=== PATIENT | female | born 1955 | race Caucasian/White ===

== ENCOUNTER 2018-04-12 11:21 | Emergency (ER) | payer BC ==
[~2018-04-12] VITALS: Ht 162.6 cm; Wt 77.1 kg
--- NOTE | 2018-04-12 11:50 | NUR ---
pt was evaluated by dr quinn. pt was d/c to home. d/c instructions given to the pt.
[2018-04-12 11:51] VITALS: BP 135/78
== END 2018-04-12 11:51 | disposition home or self-care (01) ==
LOC: ER 11:21
DX: L08.9 Local infection of the skin and subcutaneous tissue, unspecified (principal); B95.8 Unspecified staphylococcus as the cause of diseases classified elsewhere
CPT/HCPCS: 99283; A4663

== ENCOUNTER 2018-04-12 17:53 | Emergency (ER) | payer BC ==
[~2018-04-12] VITALS: Ht 162.6 cm; Wt 74.8 kg
--- NOTE | 2018-04-12 19:03 | NUR ---
pt is in room #2a. dr Potts evaluated the pt.
[2018-04-12] MEDS ORDERED: ONDANSETRON 4 MG/2 ML VIAL IM ONE (19:30)
[2018-04-12] MEDS ORDERED: MORPHINE SULFATE 4 MG/1 ML DISP.SYRIN IM ONE (19:30)
[2018-04-12] MEDS ORDERED: MORPHINE SULFATE 4 MG/1 ML DISP.SYRIN ONE (19:40)
[2018-04-12] MEDS ORDERED: ONDANSETRON 4 MG/2 ML VIAL ONE (19:40)
--- NOTE | 2018-04-12 19:48 | NUR ---
Patient discharged to home in stable conditon. Written and verbal after care instructions given. Patient verbalizes understanding of instructions. Pt out of ER via wheelchair, assisted pt to car, no acute signs of distress, VSS, all belongings taken, to be driven by friend via private vehicle.
[2018-04-12 19:56] VITALS: BP 165/79
== END 2018-04-12 19:56 | disposition home or self-care (01) ==
LOC: ER 17:56
DX: S62.102A Fracture of unspecified carpal bone, left wrist, initial encounter for closed fracture (principal); W01.198A Fall on same level from slipping, tripping and stumbling with subsequent striking against other object, initial encounter; Y93.89 Activity, other specified; Y92.89 Other specified places as the place of occurrence of the external cause; Y99.8 Other external cause status
CPT/HCPCS: 29125; 70450; 73110; 96372 ×2; 99284; A4663; J2270; J2405

== ENCOUNTER 2019-07-09 05:12 | Emergency (ER) | payer BC ==
[~2019-07-09] VITALS: Ht 162.6 cm; Wt 74.8 kg
--- NOTE | 2019-07-09 05:30 | NUR ---
Patient wheeled in via w/c. A/Ox4. Speech is clear, speaks in complete sentences. Patient came for c/o left foot pain and is not able to bear weight on that extremity. Pain 6/10. Pedal pulses palpable and denies any numbness or tingling on affected limb.
[2019-07-09] MEDS ORDERED: HYDROCODONE/APAP 10-325 MG TABLET ONE (05:53)
[2019-07-09] MEDS ORDERED: HYDROCODONE/APAP 10-325 MG TABLET PO ONE (06:00)
--- NOTE | 2019-07-09 06:15 | NUR ---
Patient discharged to home in stable conditon. Written and verbal after care instructions given. Patient verbalizes understanding of instructions. Patient ambulated with stable gait using crutches.
[2019-07-09 06:32] VITALS: BP 152/83
== END 2019-07-09 06:25 | disposition home or self-care (01) ==
LOC: ER 05:14
DX: S90.32XA Contusion of left foot, initial encounter (principal); X58.XXXA Exposure to other specified factors, initial encounter; Y93.89 Activity, other specified; Y92.89 Other specified places as the place of occurrence of the external cause; Y99.8 Other external cause status
CPT/HCPCS: 73630; A4663